=== PATIENT | female | born 1955 | race Caucasian/White ===

== ENCOUNTER → 2016-12-14 | Outpatient (CLI) | payer OTHER ==
[~2016-12-14] MED LIST: CALC600T9 PO; IBUP-103 PO; IBUP-1450 PO; MULT-506 PO; NAPR1TAB9 PO
[2016-12-14 12:23] LABS: ALT/SGPT 31 U/L (12-78); AST/SGOT 18 U/L (15-37); BASO % 0.7 %; BASO ABS # 0.03 K/uL (0-0.2); BLOOD UREA NITROGEN 16 mg/dl (7-18); BUN/CREATININE RATIO 18.8 (10-20); CALCIUM 9.3 mg/dl (8.5-10.1); CARBON DIOXIDE 31 mmol/L (21-32); CHLORIDE 103 mmol/L (98-107); COMPLETE YES; CREATININE 0.85 mg/dl (0.60-1.20); EOS % 6.4 %; GLUCOSE 94 mg/dl (70-99); HEMATOCRIT 42.1 % (37-47); LYMPH % 45.9 %; LYMPH ABS # 1.94 K/uL (1.2-3.4); MEAN CELL VOLUME 92.9 fL (80-100); MEAN CORPUSCULAR HEMOGLOBIN 30.5 pg (25-34); MEAN CORPUSCULAR HGB CONC 32.8 g/dl (32-36); MEAN PLATELET VOLUME 10.6 fL (7.4-10.4); MONO % 8.3 %; NEUT % 38.7 %; PLATELET COUNT 299 K/uL (130-400); POTASSIUM 5.2 mmol/L (3.5-5.1); RED BLOOD COUNT 4.53 M/uL (4.2-5.4); SODIUM 139 mmol/L (136-145); WHITE BLOOD COUNT 4.23 K/uL (4.8-10.8)
[2016-12-14 12:26] LABS: ALB/GLOB RATIO 1.2 (0.9-2); ALKALINE PHOSPHATASE 52 U/L (45-117); CHOLESTEROL 206 mg/dl (0-200); CHOLESTEROL/HDL RATIO 2.5; HDL CHOLESTEROL 83 mg/dl; LDL CHOLESTEROL CALCULATED 110 mg/dl; TRIGLYCERIDES 67 mg/dl (0-150); VERY LOW DENSITY LIPOPROT CALC 13 mg/dl
== END | disposition home or self-care (01) ==
LOC: C.LABBFT 07:44
PROVIDERS: ATTEND Internal Medicine
DX: Z00.00 Encounter for general adult medical examination without abnormal findings (principal); Z13.6 Encounter for screening for cardiovascular disorders; C50.919 Malignant neoplasm of unspecified site of unspecified female breast

== ENCOUNTER → 2017-01-07 | Outpatient (CLI) | payer OTHER | END | disposition home or self-care (01) | LOC: C.PAPS 14:51 | PROVIDERS: ATTEND Physician Assistant | DX: Z12.4 Encounter for screening for malignant neoplasm of cervix (principal) ==

== ENCOUNTER → 2017-01-14 | Outpatient (CLI) | payer OTHER ==
--- NOTE | 2017-01-14 15:40 | MAMMOGRAPHY REPORT ---
UNILATERAL RIGHT DIGITAL DIAGNOSTIC MAMMOGRAM TOMOSYNTHESIS WITH CAD AND TARGETED RIGHT ULTRASOUND: 01/14/2017 CLINICAL HISTORY: The patient reports that her provider felt a palpable lump during a routine clinic al exam. The patient cannot clearly feel the lump herself. The provider order states that the mass measures 3 cm and is located at 4:00 in the right breast, 2 inches off the nipple. TECHNIQUE: Breast tomosynthesis in addition to standard 2D mammography was performed. Current study was also evaluated with a Computer Aided Detection (CAD) system. Right CC and MLO 2-D and tomosynt hesis images were obtained. COMPARISON: Comparison is made to exams dated: 05/28/2016 mammogram, 05/14/2015 mammogram, 05/09/2014 ma mmogram, 04/26/2013 mammogram, 04/25/2012 mammogram, and 04/22/2011 mammogram - [facility] enter. BREAST COMPOSITION: There are scattered areas of fibroglandular density in the right breast. FINDINGS: A triangle marker her the site of the possible lump in the right medial breast. There a re no suspicious masses, calcifications, or areas of architectural distortion noted in the right danya ast. There has been no significant interval change compared to prior exams. Targeted ultrasound was performed of the right 4:00 breast in the region of the lump palpated by the patient's provider. Note that the patient could not pinpoint the lump herself. Sonographically no rmal tissue is seen in this region, without evidence of a mass or other suspicious sonographic abnor mality. IMPRESSION: ACR BI-RADS CATEGORY 2: BENIGN, TARGETED ULTRASOUND ACR BI-RADS CATEGORY 2: BENIGN No suspicious mammographic or sonographic abnormality in the right 4:00 breast, at the site of the p alpable lump felt by the patient's provider. There is no mammographic or targeted sonographic evide nce of malignancy. Recommend clinical follow-up for the right breast palpable lump, and recommend r outine bilateral screening mammograms which are due May 2017. The patient has been verbally n otified of the results. Approximately 10% of breast cancers are not detected with mammography. A negative mammographic repor t should not delay biopsy if a clinically suggestive mass is present. oKrin Agarwal M.D. ah/:01/14/2017 10:01:51 [employer] Cutting Machine Operator: Shauna Gibson RT(R)(M), [facility] letter sent: Normal / BI-RADS Code: ACR BI-RADS Category 2: Benign Ultrasound BI-RADS: ACR BI-RADS Category 2: Benign
--- NOTE | 2017-01-18 07:10 | CODING QUERY NO DIAGNOSIS ---
TREATMENT RENDERED WITHOUT A DIAGNOSIS To promote full compliance with coding requirements relating to patient care, physician participation is requested in all cases of promotion specialist uncertainty. Please assist us with providing a diagnosis/symptom for the test(s) below: A diagnosis/symptom was not documented on your Order. A valid diagnosis/symptom is required to bill all insurances. Please remember that we are unable to code a diagnosis of rule out, probable, possible, questionable, or suspected. Tests that require a diagnosis: * DIAGNOSTIC RIGHT RYAN W/ CAD DIAGNOSIS: * ULTRASOUND BREAST LIMITED DIAGNOSIS: Provider Signature: Date: Thank you Pinky Bernal [employer] Information Management Once completed, please kindly fax back to [phone] For questions please call [phone]
== END | disposition home or self-care (01) ==
LOC: C.MAMM 09:03
PROVIDERS: ATTEND Physician Assistant
DX: N63 Unspecified lump in breast (principal)

== ENCOUNTER → 2017-06-07 | Day surgery (SDC) | payer OTHER ==
[2017-05-27 10:50] VITALS: Ht 167.6 cm; Wt 77.3 kg
[~2017-06-07] VITALS: Ht 167.6 cm; Wt 77.3 kg
[~2017-06-07] MED LIST changes: -IBUP-103 PO; -IBUP-1450 PO; +LIDOCAINE HCL 2% 2 ML VIAL (20MG/ML) ONE; +PROPOFOL IV EMULSION 10 MG/ML 20 ML VIAL IV ONE; +SODIUM CHLORIDE 0.9% 500ML 500 ML IV ONE
--- NOTE | 2017-06-07 13:14 | Endo History and Physical ---
History & Physical Date of Service: Jun 07, 2017. Chief Complaint: 3 year follow up to polyps Referring Physician: Alvaro Castelan History of Present Illness 62 yo CF who presents for colonoscopy secondary to history of colon polyps. Past Medical History Arthritis, Cancer, Other Past Surgical History Hx Cardiac Surgery: No Hx Internal Defibrillator: No Hx Pacemaker: No Hx Abdominal Surgery: Yes (APPENDECTOMY) Hx of Implantable Prosthesis: No Hx Post-Op Nausea and Vomiting: No Hx Cancer Surgery: Yes (L BREAST BX,LEFT BREAST LUMPECTOMY 2005) Hx Thoracic Surgery: No Hx Orthopedic: No Hx Urinary Tract Surgery: No Family History None Social History Smoking Status: Never Smoker Hx Substance Use: No Hx Alcohol Use: Yes (RARELY) Allergies Coded Allergies: No Known Allergies (Unverified , 06/07/17) Current Medications Reported Home Medications Medications Dose Route/Sig Max Daily Dose Days Date Category Aleve (Naproxen) 220 Mg Tab 220 Mg PO BID 05/27/17 Reported Calcium + D (Calcium Carbonate-Vitamin D) 1 Tab Tab 1 Tab PO BID 05/27/17 Reported Multivitamin (Multivitamins) Tab 1 Tab PO BID 06/05/14 Reported Vital Signs Weight (Kilograms): 77.27 Height (Feet): 5 Height (Inches): 6 Date Time Temp Pulse Resp B/P (MAP) Pulse Ox O2 Delivery O2 Flow Rate FiO2 06/07/17 12:49 36.6 94 20 119/72 (88) 95 Room Air Physical Exam General Appearance: WD/WN, no apparent distress Respiratory/Chest: Auscultation: breath sounds normal Cardiovascular: Heart Auscultation: RRR Abdomen: Bowel Sounds: normal Inspection & Palpation: soft, non-distended, no tenderness, guarding & rebound Assessment and Plan Assessment: 62 yo CF who presents for colonoscopy secondary to history of colon polyps. Plan: Proceed with colonoscopy.
--- NOTE | 2017-06-07 13:59 | Discharge Instructions ---
Endoscopy Patient Instructions Date / Procedure(s) Performed Jun 07, 2017. Colonoscopy Allergy Information Coded Allergies: No Known Allergies (Unverified , 06/07/17) Discharge Date / Findings Jun 07, 2017. Diverticulosis Internal hemorrhoids Medication Instructions OK to resume all medications today as prescribed Reported Home Medications Medications Dose Route/Sig Max Daily Dose Days Date Category Aleve (Naproxen) 220 Mg Tab 220 Mg PO BID 05/27/17 Reported Calcium + D (Calcium Carbonate-Vitamin D) 1 Tab Tab 1 Tab PO BID 05/27/17 Reported Multivitamin (Multivitamins) Tab 1 Tab PO BID 06/05/14 Reported Provider Instructions Activity Restrictions - No exercising or heavy lifting for 24 hours. - Do not drink alcohol the day of the procedure. - Do not drive a car or operate machinery until the day after the procedure. - Do not make any important decisions or sign important papers in 24 hours after the procedure. Following Day: - Return to full activity which may include returning to work/school. Diet Start your diet with liquids and light foods (jello, soup, juice, toast). Then eat your usual diet if not nauseated. Treatment For Common After Affects For mild abdominal pain, bloating, or excessive gas: - Rest - Eat lightly - Lie on right side Follow-Up Information Follow-up with Alvaro Castelan as scheduled Anesthesia Information What You Should Know You have had a procedure that required some medicine to reduce anxiety and discomfort. This treatment is called moderate sedation. After receiving the treatment, you may be sleepy, but you will be able to breathe on your own. The effects of the treatment may last for several hours. Follow these instructions along with Activity/Diet recommendations noted above: * Do NOT do anything where dizziness or clumsiness would be dangerous. * Rest quietly at home today, then you can be up and about tomorrow. * Have a responsible person stay with you the rest of today. * You may have had an I.V. today. If so, you may take the dressing off later today. Recommendations Call your doctor if: * Trouble breathing * Continuous vomiting for more than 24 hours * Temperature above 101 degrees * Severe abdominal pain or bloating * Pain not relieved by pain medicine ordered * There is increased drainage or redness from any incision * A large amount of rectal bleeding greater than 2-3 tablespoons. (If you had a polyp/s removed or have hemorrhoids, a small amount of blood - from the rectum is to be expected.) * You have any unanswered questions or concerns. IN THE EVENT OF A SERIOUS EMERGENCY, GO TO THE NEAREST EMERGENCY ROOM Your discharge instructions were prepared by provider Rasta Driscoll. Patient Instructions Signature Page Susan Diez Patient (or Guardian) Signature/Date: I have read and understand the instructions given to me by my caregivers. Caregiver/RN/Doctor Signature/Date: The above-named patient and/or guardian has received patient instructions on this date. + Original Patient Signature Page (only) stays with chart. Please make copy for patient.
--- NOTE | 2017-06-07 14:06 | GI REPORT ---
Procedure Date: 06/07/2017 1:07 PM Procedure: Colonoscopy Indications: High risk colon cancer surveillance: Personal history of colonic polyps Medicines: Monitored Anesthesia Care Complications: No immediate complications. Estimated Blood Loss: Estimated blood loss: none. Procedure: Pre-Anesthesia Assessment: - Prior to the procedure, a History and Physical was performed, and patient medications and allergies were reviewed. The patient's tolerance of previous anesthesia was also reviewed. The risks and benefits of the procedure and the sedation options and risks were discussed with the patient. All questions were answered, and informed consent was obtained. Prior Anticoagulants: The patient has taken no previous anticoagulant or antiplatelet agents. ASA Grade Assessment: II - A patient with mild systemic disease. After reviewing the risks and benefits, the patient was deemed in satisfactory condition to undergo the procedure. After I obtained informed consent, the scope was passed under direct vision. Throughout the procedure, the patient's blood pressure, pulse, and oxygen saturations were monitored continuously. The Scope was introduced through the anus and advanced to the terminal ileum. The colonoscopy was performed without difficulty. The patient tolerated the procedure well. The quality of the bowel preparation was good. The terminal ileum, ileocecal valve, appendiceal orifice, and rectum were photographed. Findings: Multiple small-mouthed diverticula were found in the sigmoid colon. Non-bleeding internal hemorrhoids were found during retroflexion. The hemorrhoids were small. Impression: - Diverticulosis in the sigmoid colon. - Non-bleeding internal hemorrhoids. - No specimens collected. Recommendation: - Resume previous diet. - Continue present medications. - Repeat colonoscopy in 5 years for surveillance. - Return to primary care physician as previously scheduled. Rasta Driscoll DO 06/07/2017 2:05:49 PM This report has been signed electronically. Note Initiated On: 06/07/2017 1:07 PM I attest to the content of the Intraoperative Record and orders documented therein, exceptions below
--- NOTE | 2017-06-07 14:37 | Anesthesiology Progress Note ---
Anesthesia Post Op Note Date & Time Jun 07, 2017 at 14:37 Vital Signs Vital Signs Past 12 Hours Date Time Temp Pulse Resp B/P (MAP) Pulse Ox O2 Delivery O2 Flow Rate FiO2 06/07/17 12:49 36.6 94 20 119/72 (88) 95 Room Air Notes Mental Status: alert / awake / arousable, participated in evaluation Pt Amnestic to Procedure: Yes Nausea / Vomiting: adequately controlled Pain: adequately controlled Airway Patency, RR, SpO2: stable & adequate BP & HR: stable & adequate Hydration State: stable & adequate Anesthetic Complications: no major complications apparent
[2017-06-07 14:45] VITALS: BP 135/82; PULSE 85; O2SAT 97
== END | disposition home or self-care (01) ==
LOC: C.GI 12:22
PROVIDERS: ATTEND Internal Medicine
DX: Z12.11 Encounter for screening for malignant neoplasm of colon (principal); Z86.010 Personal history of colon polyps; K57.30 Diverticulosis of large intestine without perforation or abscess without bleeding; K64.8 Other hemorrhoids; Z85.3 Personal history of malignant neoplasm of breast